=== PATIENT | female | born 1985 | race African-American/Black ===

== ENCOUNTER 2023-09-22 20:48 | Emergency (ER) | payer MEDICAID ==
[~2023-09-22] VITALS: Ht 162.6 cm; Wt 105.0 kg
[2023-09-22 20:57] VITALS: BP 137/65; PULSE 86; RESP 20; TEMP 98.3; O2SAT 100
== END 2023-09-22 22:18 | disposition left against medical advice (07) ==
LOC: ER 20:48
DX: N93.9 Abnormal uterine and vaginal bleeding, unspecified (principal); Z53.21 Procedure and treatment not carried out due to patient leaving prior to being seen by health care provider
CPT/HCPCS: 81025